=== PATIENT | female | born 1960 | race African-American/Black ===

== ENCOUNTER 2017-02-15 17:56 | Emergency (ER) | payer OTHER ==
[~2017-02-15] VITALS: Ht 160 cm; Wt 81.6 kg
[2017-02-15] MEDS ORDERED: Ketorolac 60mg Inj IM ONE (19:45)
[2017-02-15] MEDS ORDERED: ROBAXIN-750750 MG PO (20:41)
[2017-02-15] MEDS ORDERED: IBUPROFEN600 MG ORAL (20:41)
[2017-02-15 20:50] VITALS: BP 162/82
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
== END 2017-02-15 20:50 | disposition home or self-care (01) ==
LOC: EMR 18:58
DX: M54.2 Cervicalgia (principal); M54.5 Low back pain; M25.512 Pain in left shoulder; M25.511 Pain in right shoulder; Z88.2 Allergy status to sulfonamides
CPT/HCPCS: 99283

== ENCOUNTER 2017-03-04 17:52 | Emergency (ER) | payer OTHER ==
[~2017-03-04] VITALS: Ht 160 cm; Wt 81.6 kg
[~2017-03-04 17:52] MED LIST: IBUPROFEN600 MG ORAL; ROBAXIN-750750 MG PO
[2017-03-04] MEDS ORDERED: NKM (18:12)
[2017-03-04] MEDS ORDERED: IBUPROFEN600 MG ORAL (19:07)
[2017-03-04 19:20] VITALS: BP 140/79
--- NOTE | 2017-03-05 12:00 | Diagnostic Imaging Report ---
Indication: Pain Findings: 3 views of the right shoulder were obtained. No acute fractures, malalignment, erosions or periostitis are identified. Soft tissues are unremarkable. Impression: Negative for acute injury
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
== END 2017-03-04 19:15 | disposition home or self-care (01) ==
LOC: EMR 18:54
DX: M25.511 Pain in right shoulder (principal); Z88.2 Allergy status to sulfonamides
CPT/HCPCS: 99283